=== PATIENT | male | born 1935 ===

== ENCOUNTER 2021-02-14 12:13 | Outpatient (CLI) | payer SELFPAY | END 2021-02-14 12:14 | disposition EMS.NT | LOC: EMS 12:13 | DX: S01.81XA Laceration without foreign body of other part of head, initial encounter (principal); W18.09XA Striking against other object with subsequent fall, initial encounter; Y93.01 Activity, walking, marching and hiking; Y92.481 Parking lot as the place of occurrence of the external cause ==

== ENCOUNTER 2021-04-12 15:02 | Outpatient (CLI) | payer MEDICARE, OTHER ==
--- NOTE | 2021-04-13 11:48 | Ultrasound Report ---
PROCEDURE: Retroperitoneal INDICATIONS: STAGE G3 KIDNEY DISFUNCTION TECHNIQUE: Real-time scanning was performed of the kidneys and bladder, with image documentation. COMPARISON: None. FINDINGS: Kidneys: Right kidney measures 9.5 cm long; left kidney measures 9.2 cm long. Right renal cortical thickness is 1.3 cm; left renal cortical thickness is 1.9 cm. The kidneys are lobulated in contour bilaterally with mild renal cortical thinning. There is preserved cortical medullary differentiation. No hydronephrosis. Bladder: Pre-void bladder volume is 168 mL. Post-void residual is 20 mL. Pre-void images demonstra te no intraluminal masses or stones. On pre-void imageswith, the left ureteral jet was visualized wi th color Doppler interrogation. (Of note, ureteral jets may not be detectable in up to 25% of cases due to insufficient differences in specific gravity between ureteral and bladder urine). Miscellaneous: A cystic structure measuring approximately 5.7 x 4.2 x 4.5 cm was demonstrated on pre void images. This was not discretely visualized on post void images. The prostate is reportedly surgi nick absent. No free pelvic fluid. IMPRESSION: 1. No evidence of hydronephrosis. 2. Mild renal cortical thinning bilaterally. 3. Postvoid residual volume of 20 mL. 4. Cystic structure demonstrated posterior to the bladder which was not visualized on postvoid images . The findings are nonspecific and may reflect a possible bladder diverticulum. Further evaluation ma y be obtained with CT if clinically indicated. Reviewed by: Jose Alfredo Harding MD on 04/13/2021 11:47 AM PDT Approved by: Jose Alfredo Harding MD on 04/13/2021 11:47 AM PDT Station ID: [id number]
== END 2021-04-12 15:03 | disposition home or self-care (01) ==
LOC: DI 15:02
PROVIDERS: ATTEND Internal Medicine Nephrology
DX: N18.30 Chronic kidney disease, stage 3 unspecified (principal)